=== PATIENT | female | born 1995 | race Caucasian/White ===

== ENCOUNTER 2019-04-07 16:56 | Outpatient (CLI) | payer MEDICAID ==
[~2019-04-07] VITALS: Ht 157.5 cm; Wt 54.4 kg
[~2019-04-07 16:56] MED LIST: ACHD5005 PO; AMOX250S5 PO; BIRTH CONTROL PILL PO; DIPH50CA PO; DOCU100C37 PO; HYDR118S PO; IBUP-1773 PO; PREN1TAB86 PO; TERC45CR VG; TETRACAINE LOLLIPOPS PO
--- NOTE | 2019-04-07 17:05 | NUR ---
Arrived to unit from ED. Ambulates self with c/o left lower sharp abd pain. To room 315. Gowned and urine sample obtained. To bed and oriented to room, call light and surroundings. Bed controls explained.
--- NOTE | 2019-04-07 17:48 | NUR ---
Dr Be called and notified of pt arrival, gestation, c/o, assessment, urine dipstick, fht dopplered. New order received.
--- NOTE | 2019-04-07 18:21 | NUR ---
Dr Be notified of wet prep result and new order received.
[2019-04-07] MEDS ORDERED: METR500T PO (18:24)
--- NOTE | 2019-04-07 18:30 | NUR ---
Discharge instructions explained, signed and copy to patient. pt verbalized understanding of instructions/prescription and denied questions. Ambulates self off unit to private vehicle with belongings in hand. prescription called to [facility] pharmacy per pt request.
== END 2019-04-07 18:30 | disposition home or self-care (01) ==
LOC: LDRP 16:56 → WSo 16:56
PROVIDERS: ATTEND Family Medicine
DX: O99.89 Other specified diseases and conditions complicating pregnancy, childbirth and the puerperium (principal); R10.32 Left lower quadrant pain; Z3A.23 23 weeks gestation of pregnancy
CPT/HCPCS: 87210; 99214

== ENCOUNTER → 2019-04-13 | Outpatient (CLI) | payer MEDICAID ==
[~2019-04-13] MED LIST changes: +METR500T PO
--- NOTE | 2019-04-13 12:36 | Diagnostic Imaging Report ---
INDICATION: survey. TECHNIQUE: Multiple real-time grayscale images were obtained over the gravid uterus. COMPARISON: None. FINDINGS: There is a single live fetus in a cephalic presentation. heart rate was recorded at 153 beats per minute. Placenta is posterior. Amniotic fluid volume appears normal. survey shows kidneys, bladder, and stomach to be unremarkable. brain is unremarkable. There is a four-chamber heart. There is a three-vessel cord. Cord insertion was difficult to visualize due to position. Spine is somewhat limited as well due to position. Cervical length is 4.7 cm. Biometrical measurements are as follows: Biparietal 5.42 cm, age 22 weeks 4 days. Head circumference 20.46 cm, age 22 weeks 5 days. Abdominal circumference 17.60 cm, age 22 weeks 4 days. Femur length 3.90 cm, age 22 weeks 4 days. Sonographic estimate age: 22 weeks 5 days. Sonographic estimated date of delivery: 08/12/19. Estimated Weight: 511 gm (+/- 75 gm). LMP percentile: 4%. heart rate: 153 beats per minute. number: 1 of 1. IMPRESSION: Single live IUP measuring 22 weeks 5 days gestational age. Estimated of confinement sonographically is 08/12/2019. survey is unremarkable, although the cord insertion and spine are somewhat limited due to position. Dictated by: Dictated on workstation # [id number]
== END ==
LOC: RAD 10:08
PROVIDERS: ATTEND Family Medicine
DX: O09.32 Supervision of pregnancy with insufficient antenatal care, second trimester (principal); Z3A.22 22 weeks gestation of pregnancy
CPT/HCPCS: 76805

== ENCOUNTER 2019-06-05 13:41 | Outpatient (CLI) | payer MEDICAID ==
--- NOTE | 2019-06-05 13:45 | NUR ---
KAREN BALLESTEROS presented to unit via AMBULATION from ED, with c/o LOWER ABDOMINAL PAINS. KAREN BALLESTEROS weighed, gowned, voided, and to bed. EFHM and TOCO applied, VS taken. KAREN BALLESTEROS oriented to bed controls, call light, TV, heat, and A/C controls.
[2019-06-05 14:05] VITALS: BP 110/68
--- NOTE | 2019-06-05 14:26 | NUR ---
DR HUBBARD CALLED AND NOTIFIED OF PT ARRIVAL, C/O LOWER ABDOMINAL PAIN SHE DESCRIBES "PULLING" THAT STARTED AROUND [id number] HUBBARD NOTIFIED OF HISTORY, EDC, VS, CTX PATTERN, FHR, OTHER ASSESSMENT FINDINGS. PT DENIES TAKING TYLENOL BECAUSE "SHE CAN FEEL HER BLOOD THINNING" AND IT MAKES HER "SICK TO HER STOMACH". PT REPORTS DRINKING WATER AND HAVING A REGULAR APPETITE, ADEQUATE MOVEMENT, BUT DENIES LEAKING/BLEEDING AND S/S OF UTI. ORDERS REC'D TO CHECK CERVIX, COLLECT UA, AND EDUCATE PT ON STRETCHES FOR ROUND LIGAMENT PAINS
[2019-06-05 14:45] LABS: BILIRUBIN,URINE NEGATIVE (NEGATIVE); CLARITY,URINE CLEAR; COLOR,URINE YELLOW; GLUCOSE, URINE (UA) NEGATIVE (NEGATIVE); KETONES,URINE NEGATIVE (NEGATIVE); LEUKOCYTE ESTERASE ,URINE 3+ (NEGATIVE); NITRITE,URINE NEGATIVE (NEGATIVE); PH,URINE 7 (5-9); PROTEIN,URINE 2+ (NEGATIVE); UROBILINOGEN,URINE 4 MG/DL (NORMAL)
[2019-06-05 15:00] LABS: BACTERIA,URINE LARGE /HPF
--- NOTE | 2019-06-05 15:22 | NUR ---
ORACIO AND CHELSEY REPORTED TO DR. HUBBARD. ORDERS REC'D TO CALL IN MACROBID 100MG BID X 7 DAYS AND DISMISS PT TO HOME.
[2019-06-05] MEDS ORDERED: NITR-65 PO (15:30)
--- NOTE | 2019-06-05 15:39 | NUR ---
DISCHARGE INSTRUCTIONS EXPLAINED TO PT WITH COPY PROVIDED TO PT. PT NOTIFIED OF ABX CALLED TO [facility]. PT EDUCATED ON INTERVENTIONS TO ALEVIATE ROUND LIGAMENT PAINS. PT VERBALIZES UNDERSTANDING OF INSTRUCTIONS AND SIGNS TO VERIFY. DENIES QUESTIONS OR CONCERNS. AMBULATES OFF UNIT TO PRIVATE VEHICLE WITH ALL PERSONAL BELONGINGS. NO S/S OF DISTRESS NOTED.
--- NOTE | 2019-06-08 16:01 | Physician Query-Final Dx ---
ANDREW CANO 06/08/19 1601: Clinic Account Progress/Dx Physician Query: Please give diagnosis Please be sure to add the weeks of gestation Date of Service Jun 05, 2019 at 13:41 VIANNEY HUBBARD MD 06/17/195: Clinic Account Progress/Dx DIAGNOSIS: Diagnosis Abdominal pain UTI 31 weeks gestation third trimester ANDREW CANO Jun 08, 2019 16:01 VIANNEY HUBBARD MD Jun 17, 2019 20:35
== END 2019-06-05 15:39 | disposition home or self-care (01) ==
LOC: WSo 13:41
PROVIDERS: ATTEND Family Medicine
DX: O23.43 Unspecified infection of urinary tract in pregnancy, third trimester (principal); Z3A.31 31 weeks gestation of pregnancy
CPT/HCPCS: 81000; 87088; 99213

== ENCOUNTER → 2019-07-20 | Outpatient (CLI) | payer MEDICAID ==
[~2019-07-20] MED LIST changes: +NITR-65 PO; +PREN1TAB79 PO
--- NOTE | 2019-07-20 16:46 | Diagnostic Imaging Report ---
INDICATION: Ingested tooth fragment. PA and lateral views of the chest are obtained. COMPARISON: No previous study is available for comparison at this time. FINDINGS: Heart size and pulmonary vasculature are within normal limits, and the lungs are clear, bilaterally. There is no evidence of radiopaque fragment over the course of the trachea, bronchi, or lungs. IMPRESSION: Unremarkable chest. Dictated by: Dictated on workstation # [id number]
== END ==
LOC: RAD 16:05
PROVIDERS: ATTEND Family Medicine
DX: T18.9XXA Foreign body of alimentary tract, part unspecified, initial encounter (principal)
CPT/HCPCS: 71046

== ENCOUNTER 2019-07-21 09:23 | Outpatient (CLI) | payer MEDICAID ==
[~2019-07-21] VITALS: Ht 154.9 cm; Wt 63.2 kg
[~2019-07-21 09:23] MED LIST changes: -PREN1TAB79 PO
[2019-07-21] MEDS ORDERED: PREN1TAB79 PO (09:41)
[2019-07-21 09:43] VITALS: BP 99/66
== END 2019-07-21 10:24 | disposition home or self-care (01) ==
LOC: PREOP 09:23
PROVIDERS: ATTEND Obstetrics & Gynecology
DX: Z01.818 Encounter for other preprocedural examination (principal)
CPT/HCPCS: 87081

== ENCOUNTER 2019-07-28 07:01 | Inpatient (IN) | payer MEDICAID ==
[~2019-07-28] VITALS: Ht 155 cm; Wt 62.6 kg
[2019-07-28] VITALS (14 sets, daily range): BP systolic 97–137; BP diastolic 58–89
[~2019-07-28 07:01] MED LIST changes: +PREN1TAB79 PO
--- NOTE | 2019-07-28 07:15 | NUR ---
KAREN BALLESTEROS presented to unit via ambulation from home, accompanied by s/0, with c/o PREVIOUS SECTION. KAREN BALLESTEROS weighed, gowned, voided, and to bed. EFHM and TOCO applied, VS taken. KAREN BALLESTEROS oriented to bed controls, call light, TV, heat, and A/C controls.
[2019-07-28] MEDS ORDERED: ceFAZolin INJECTION 1,000 MG in WATER (STERILE) FOR INJECTION 10 ML IV ONE (07:30)
[2019-07-28] MEDS ORDERED: LACTATED RINGERS 1,000 ML IV PRN ×2 (07:33)
[2019-07-28] MEDS ORDERED: CITRIC ACID/SOB CIT (BICITRA) 30 ML UDC ONE (07:40)
[2019-07-28] MEDS ORDERED: METOCLOPRAMIDE INJ 10 MG/2 ML (REGLAN) ONE (07:40)
[2019-07-28] MEDS ORDERED: WATER (STERILE) FOR INJECTION 20 ML ONE (07:41)
[2019-07-28] MEDS ORDERED: ceFAZolin INJECTION 1,000 MG ONE (07:41)
[2019-07-28] MEDS ORDERED: FAMOTIDINE 20MG/2ML IV (PEPCID) ONE (07:41)
[2019-07-28] MEDS ORDERED: FAMOTIDINE 20MG/2ML IV (PEPCID) IV ONE (07:45)
[2019-07-28] MEDS ORDERED: METOCLOPRAMIDE INJ 10 MG/2 ML (REGLAN) IV ONE (07:45)
[2019-07-28] MEDS ORDERED: CITRIC ACID/SOB CIT (BICITRA) 30 ML UDC PO ONE (07:45)
[2019-07-28] MEDS ORDERED: CATHETER FLUSH 10 ML SYR IV PRN (07:45)
[2019-07-28] MEDS ORDERED: fentaNYL INJECTION 100 MCG/2 ML AMP ONE (08:06)
[2019-07-28 08:09] LABS: BASOPHILS % (AUTO) 0 % (0-10); BILIRUBIN,URINE NEGATIVE (NEGATIVE); CLARITY,URINE CLEAR; COLOR,URINE YELLOW; EOSINOPHILS # (AUTO) 0.1 10^3/uL (0.0-0.3); EOSINOPHILS % (AUTO) 1 % (0-10); GLUCOSE, URINE (UA) NEGATIVE (NEGATIVE); HEMATOCRIT 34 % (35-52); HEMOGLOBIN 11.1 G/DL (11.5-16.0); KETONES,URINE NEGATIVE (NEGATIVE); LEUKOCYTE ESTERASE ,URINE 1+ (NEGATIVE); LYMPHOCYTES # (AUTO) 0.8 X 10^3 (1.0-4.0); LYMPHOCYTES % (AUTO) 10 % (12-44); MEAN CORPUSCULAR HEMOGLOBIN 29 PG (25-34); MEAN CORPUSCULAR HGB CONC 33 G/DL (32-36); MEAN CORPUSCULAR VOLUME 87 FL (80-99); MEAN PLATELET VOLUME 10.4 FL (7.4-10.4); MONOCYTES # (AUTO) 0.5 X 10^3 (0.0-1.0); MONOCYTES % (AUTO) 6 % (0-12); NEUTROPHILS # (AUTO) 6.9 X 10^3 (1.8-7.8); NEUTROPHILS % (AUTO) 84 % (42-75); NITRITE,URINE NEGATIVE (NEGATIVE); PH,URINE 6.5 (5-9); PLATELET COUNT 192 10^3/uL (130-400); PROTEIN,URINE NEGATIVE (NEGATIVE); RED CELL DISTRIBUTION WIDTH 13.5 % (10.0-14.5); UROBILINOGEN,URINE NORMAL (NORMAL); WHITE BLOOD COUNT 8.2 10^3/uL (4.3-11.0)
[2019-07-28 08:16] LABS: BACTERIA,URINE MODERATE /HPF
[2019-07-28] MEDS ORDERED: OXYTOCIN/NORMAL SALINE 1,000 ML IV ONE (08:25)
[2019-07-28] MEDS ORDERED: KETAMINE/NaCl 50 MG/5 ML SYRINGE ONE (08:32)
--- NOTE | 2019-07-28 08:36 | Progress Note-Pre Operative ---
Pre-Operative Progress Note H&P Reviewed The H&P was reviewed, patient examined and no changes noted. Date Seen by Provider: Jul 28, 2019 Time Seen by Provider: 08:30 Date H&P Reviewed: Jul 28, 2019 Time H&P Reviewed: 08:15 Pre-Operative Diagnosis: Previous section YAMINI SEVILLA DO Jul 28, 2019 08:36
[2019-07-28] MEDS ORDERED: BUPIVACAINE 0.5% 30 ML (SENSORCAINE) VIAL ONE (08:38)
[2019-07-28] MEDS ORDERED: OXYTOCIN/NORMAL SALINE 500 ML IV SCH (09:46)
[2019-07-28] MEDS: KETOROLAC 30 MG/ML VIAL IV SCH ×3 (09:50→23:42)
--- NOTE | 2019-07-28 09:51 | Cesarean Section Operative ---
Procedure Procedure Note Pre-operative Diagnosis: Zaira Rizo is a 23 /Para 12/1111 , Gestational Age 39 weeks with history of previous section. Post-operative Diagnosis: same Procedure: Repeat low transverse section Physician: YAMINI SEVILLA Professional Volleyball Player: Brittney Fernández MS III Estimated blood loss: 400 mL Disposition: Findings: Viable female , Apgars 9/9, weight 6#5ounces, intact placenta, 3vc, normal appearing uterus, tubes, and ovaries. Indications:Zaira Rizo is a 23 /Para 12/1111 ,Gestational Age 39 weeks with history of previous section. Procedure Details: The patient was seen in pre-op and the procedure was discussed with the patient in full, including the risks, benefits, and alternatives. All questions were answered. The patient was taken to the operating room and a time out was performed, verifying patient and procedure. After spinal anesthesia was placed by our anesthesia colleagues, the patient was placed in the dorsal supine with leftward tilt for uterine displacement.~ Her abdomen was then prepped and draped in the typical sterile fashion. A Pfannenst iel skin incision was made using a scalpel and carried down through the underlying fascia. The fascia was incised in the midline and tented up using Jennifer clamps. On both the inferior and superior fascia side the rectus muscle was dissected off bluntly and sharply using Engel scissors. The peritoneum was identified and entered bluntly in the midline. This was then stretched laterally using manual strength. After entering the abdominal cavity and confirming lack of intraperitoneal adhesions, a large Chetan retractor was placed and the lower uterine segment was visualized. A bladder flap was created with the use of Metzenbaum scissors.~ A scalpel was utilized to make a low transverse uterine incision. Amniotomy was performed with an Allis clamp with return of clear fluid. The infant's head was grasped and brought to the level of the incision. Fundal pressure was applied and was delivered without difficulty. Mouth and nares were suctioned with bulb suction. After the umbilical cord was clamped and cut, the infant was handed off to the pediatric staff. A sample of cord blood was then obtained. The placenta was delivered intact via uterine massage. The uterus was exteriorized and cleared of all clots and debris. The uterine incision was closed using 0 Vicryl in a running locked fashion. A second imbricated layer was placed using 0 Vicryl in a running fashion as well. The uterus was flexed forward and the posterior rectouterine space was inspected and cleared of all clots and debris. Again the hysterotomy site was examined and hemostasis was observed. The bilateral tubes and ovaries appeared normal. The uterus was placed back into the abdominal cavity and abdominal gutters were cleared of all clots and debris. A final check of the uterine incision showed it to be hemostatic. The peritoneum was closed using 3-0 Vicryl in a running fashion. The fascia was closed with 0 Vicryl in a running fashion. The subcutaneous space was hemostatic, and irrigated. The subcutaneous space was closed with 3-0 Vicryl in several single interrupted stitches. The skin was then closed using 4-0 Monocryl in a running subcuticular fashion. The skin edges were reapproximated together and were hemostatic. A pressure dressing was applied. All sponge, lap and needle counts were correct at the end of the procedure per nursing. Vitals - Labs Vital Signs - I&O Vital Signs Date Time Temp Pulse Resp B/P (MAP) Pulse Ox O2 Delivery O2 Flow Rate FiO2 07/28/19 08:40 90 20 101/67 (78) Room Air 07/28/19 08:20 80 20 97/68 (78) Room Air 07/28/19 07:50 80 20 99/58 (72) Room Air 07/28/19 07:20 36.7 73 20 109/73 (85) Room Air Labs Laboratory Tests 07/28/19 07:40: White Blood Count 8.2, Red Blood Count 3.88L, Hemoglobin 11.1L, Hematocrit 34L, Mean Corpuscular Volume 87, Mean Corpuscular Hemoglobin 29, Mean Corpuscular Hemoglobin Concent 33, Red Cell Distribution Width 13.5, Platelet Count 192, Mean Platelet Volume 10.4, Neutrophils (%) (Auto) 84H, Lymphocytes (%) (Auto) 10L, Monocytes (%) (Auto) 6, Eosinophils (%) (Auto) 1, Basophils (%) (Auto) 0, Neutrophils # (Auto) 6.9, Lymphocytes # (Auto) 0.8L, Monocytes # (Auto) 0.5, Eosinophils # (Auto) 0.1, Basophils # (Auto) 0.0, Urine Color YELLOW, Urine Clar ity CLEAR, Urine pH 6.5, Urine Specific [place] 1.015L, Urine Protein NEGATIVE, Urine Glucose (UA) NEGATIVE, Urine Ketones NEGATIVE, Urine Nitrite NEGATIVE, Urine Bilirubin NEGATIVE, Urine Urobilinogen NORMAL, Urine Leukocyte Esterase 1+H, Urine RBC (Auto) NEGATIVE, Urine RBC NONE, Urine WBC 5-10H, Urine Squamous Epithelial Cells 10-25H, Urine Crystals NONE, Urine Bacteria MODERATEH, Urine Casts NONE, Urine Mucus NEGATIVE, Urine Culture Indicated YES YAMINI SEVILLA DO Jul 28, 2019 09:51
[2019-07-28] MEDS ORDERED: TETANUS,DIPTH,PERTUSS P/F (BOOSTRIX) 0.5 ML VIAL IM SCH (10:00)
[2019-07-28] MEDS ORDERED: morphine INJ 4 MG/ML 1 ML (VIAL/SYRINGE) IVP PRN (10:00)
[2019-07-28] MEDS ORDERED: MEASLES,MUMPS,RUBELLA 1 EA INJ SC SCH (10:00)
[2019-07-28] MEDS ORDERED: PHENYLEPHRINE 100 MCG/ML 10 ML (ANESTHESIA) SYR ONE (10:03)
--- NOTE | 2019-07-28 11:10 | NUR ---
PT TRANSPORTED TO ROOM 3307 FOR PP CARE, NO DISTRESS, IV PITOCIN INFUSING PER PUMP. PT KARYNA PAIN OR C/O. S/O AND INFANT AT SIDE OF BED. SCD'S ON, FFU/2 LT LOCHIA NOTED. PLAN OF CARE EXPLAINED, WILL MONITOR CLOSELY.
--- NOTE | 2019-07-28 11:48 | NUR ---
RT CALLED ABOUT IS.
--- NOTE | 2019-07-28 12:00 | NUR ---
PT C/O PAIN, MEDS GIVEN SEE DEC.
[2019-07-28] MEDS: ACETAMINOPHEN 500 MG TAB (TYLENOL) PO SCH ×2 (14:30→23:43)
--- NOTE | 2019-07-28 14:30 | NUR ---
PT C/O PAIN, MORPHINE 2MG GIVE SIVP, SCHEDULED TYLENOL GIVEN PO.
--- NOTE | 2019-07-28 15:40 | NUR ---
PITOCIN COMPLETE, IV HEP LOCKED, PT AMBULATED TO BR, VOIDED, PERICARE COMPLETED, BACK TO BED. TOLERATED WELL, PTS FAMILY AT BEDSIDE.
[2019-07-28] MEDS: CATHETER FLUSH 10 ML SYR IV SCH ×2 (16:40→23:43)
--- NOTE | 2019-07-28 16:40 | NUR ---
PT C/O PAIN, SCHEDULED TORADOL GIVEN SIVP, OXYCODONE GIVEN PO.
--- NOTE | 2019-07-28 20:00 | NUR ---
vs and assessments done. pain addressed.
[2019-07-28] MEDS: DOCUSATE SODIUM 100 MG (COLACE) CAP PO SCH (21:06)
[2019-07-29 01:44] VITALS: BP 110/62
[2019-07-29] MEDS ORDERED: MILK OF MAGNESIA 400 MG/5 ML 30 ML UDC PO PRN (05:00)
[2019-07-29 05:08] LABS: BASOPHILS % (AUTO) 0 % (0-10); EOSINOPHILS # (AUTO) 0.1 10^3/uL (0.0-0.3); EOSINOPHILS % (AUTO) 1 % (0-10); HEMATOCRIT 28 % (35-52); HEMOGLOBIN 9.2 G/DL (11.5-16.0); LYMPHOCYTES # (AUTO) 0.8 X 10^3 (1.0-4.0); LYMPHOCYTES % (AUTO) 10 % (12-44); MEAN CORPUSCULAR HEMOGLOBIN 28 PG (25-34); MEAN CORPUSCULAR HGB CONC 32 G/DL (32-36); MEAN CORPUSCULAR VOLUME 87 FL (80-99); MEAN PLATELET VOLUME 10.1 FL (7.4-10.4); MONOCYTES # (AUTO) 0.4 X 10^3 (0.0-1.0); MONOCYTES % (AUTO) 5 % (0-12); NEUTROPHILS # (AUTO) 6.7 X 10^3 (1.8-7.8); NEUTROPHILS % (AUTO) 84 % (42-75); PLATELET COUNT 186 10^3/uL (130-400); RED CELL DISTRIBUTION WIDTH 13.6 % (10.0-14.5)
[2019-07-29] MEDS: KETOROLAC 30 MG/ML VIAL IV SCH (05:43)
--- NOTE | 2019-07-29 05:50 | NUR ---
vs done. dressing removed. incision clean and dry. well approximated.
[2019-07-29 06:02] VITALS: BP 100/56
--- NOTE | 2019-07-29 07:35 | Anesthesia-Regional Post-Op ---
Regional Patient Condition Mental Status: Alert, Oriented x3 Circulation: Same as Pre-Op Headache: Absent Sensation: Full Recovery Motor Block: Absent Post Op Complications Complications None Follow Up Care/Instructions Patient Instructions None needed. Anesthesia/Patient Condition Patient is doing well, no complaints, stable vital signs, no apparent adverse anesthesia problems. No complications reported per nursing. [place] home [place] [facility]: Yes SKINNY GANDARA CRNA Jul 29, 2019 07:35
--- NOTE | 2019-07-29 08:00 | NUR ---
Mom holding after attempting to nurse. Pt up to BR - placed in crib - awake and alert - sucking on pacifier.
[2019-07-29 08:15] VITALS: BP 101/62
[2019-07-29] MEDS: DOCUSATE SODIUM 100 MG (COLACE) CAP PO SCH ×2 (08:30→19:52)
--- NOTE | 2019-07-29 08:32 | Postpartum Progress Note ---
Post Op Post-operative Day #1 s/p RLTCS Subjective: Patient is without complaints. Ambulating, voiding after hollins removed. Tolerating a regular diet without nausea or vomiting. Normal lochia. Pain is well controlled with oral pain medications. Passing flatus. breast feeding. [] Objective: 07/29/19 07/29/19 01:44 06:02 Temp 36.6 36.5 Pulse 67 66 Resp 18 18 B/P (MAP) 110/62 (78) 100/56 (71) Pulse Ox 97 98 07/29/19 00:00 Intake Total 950 ml Balance 950 ml Laboratory Tests Test 07/29/19 04:58 Range/Units White Blood Count 8.0 4.3-11.0 10^3/uL Red Blood Count 3.25 L 4.35-5.85 10^6/uL Hemoglobin 9.2 L 11.5-16.0 G/DL Hematocrit 28 L 35-52 % Mean Corpuscular Volume 87 80-99 FL Mean Corpuscular Hemoglobin 28 25-34 PG Mean Corpuscular Hemoglobin Concent 32 32-36 G/DL Red Cell Distribution Width 13.6 10.0-14.5 % Platelet Count 186 130-400 10^3/uL Mean Platelet Volume 10.1 7.4-10.4 FL Neutrophils (%) (Auto) 84 H 42-75 % Lymphocytes (%) (Auto) 10 L 12-44 % Monocytes (%) (Auto) 5 0-12 % Eosinophils (%) (Auto) 1 0-10 % Basophils (%) (Auto) 0 0-10 % Neutrophils # (Auto) 6.7 1.8-7.8 X 10^3 Lymphocytes # (Auto) 0.8 L 1.0-4.0 X 10^3 Monocytes # (Auto) 0.4 0.0-1.0 X 10^3 Eosinophils # (Auto) 0.1 0.0-0.3 10^3/uL Basophils # (Auto) 0.0 0.0-0.1 10^3/uL Physical Exam: General - Alert and oriented, no apparent distress Abdomen - Soft, appropriately tender to palpation, non-distended, fundus firm at umbilicus Incision - clean, dry and intact; no erythema or induration, no drainage Extremities - no edema, negative Doug's bilaterally [ Assessment: 1. post-operative day # 1, status post RLTCS. Recovering well, hemodynamically stable Acute blood loss anemia Plan: Routine post-operative care. Encourage breast feeding. Encourage ambulation. VTE prophylaxis: SCDs. Ferrous sulfate supplementation. Plan for discharge tomorrow Vitals - Labs Vital Signs - I&O Vital Signs Date Time Temp Pulse Resp B/P (MAP) Pulse Ox O2 Delivery O2 Flow Rate FiO2 07/29/19 06:02 36.5 66 18 100/56 (71) 98 07/29/19 01:44 36.6 67 18 110/62 (78) 97 07/28/19 20:30 36.4 78 18 98/60 (73) 97 07/28/19 16:40 36.1 78 20 111/71 (84) 100 Room Air 07/28/19 14:30 60 20 137/76 (96) 100 Room Air 07/28/19 13:30 56 20 127/78 (94) 100 Room Air 07/28/19 12:30 36.1 54 20 123/79 (94) 100 Room Air 07/28/19 10:55 36.2 20 105/89 (94) 100 Room Air 07/28/19 10:55 Room Air 07/28/19 10:45 Room Air 07/28/19 10:45 36.1 16 110/81 (91) 100 Room Air 07/28/19 10:30 Room Air 07/28/19 10:30 36.1 15 104/70 (81) 100 Room Air 07/28/19 10:15 36.0 15 107/79 (88) 100 Room Air 07/28/19 10:15 Room Air 07/28/19 10:05 36.0 15 112/71 (85) 100 Room Air 07/28/19 10:05 Room Air 07/28/19 08:40 90 20 101/67 (78) Room Air I & O 07/29/19 07:00 Intake Total 3960 ml Output Total 1550 ml Balance 2410 ml Labs Laboratory Tests 07/29/19 04:58: White Blood Count 8.0, Red Blood Count 3.25L, Hemoglobin 9.2L, Hematocrit 28L, Mean Corpuscular Volume 87, Mean Corpuscular Hemoglobin 28, Mean Corpuscular Hemoglobin Concent 32, Red Cell Distribution Width 13.6, Platelet Count 186, Mean Platelet Volume 10.1, Neutrophils (%) (Auto) 84H, Lymphocytes (%) (Auto) 10L, Monocytes (%) (Auto) 5, Eosinophils (%) (Auto) 1, Basophils (%) (Auto) 0, Neutrophils # (Auto) 6.7, Lymphocytes # (Auto) 0.8L, Monocytes # (Auto) 0.4, Eosinophils # (Auto) 0.1, Basophils # (Auto) 0.0 YAMINI SEVILLA DO Jul 29, 2019 08:32
[2019-07-29 12:25] VITALS: BP 112/63
--- NOTE | 2019-07-29 13:00 | NUR ---
report received from ARVIND Ramires. care assumed of pt.
[2019-07-29] MEDS: ACETAMINOPHEN 500 MG TAB (TYLENOL) PO SCH (15:27)
[2019-07-29 18:40] VITALS: BP 103/69
[2019-07-29] MEDS: NAPROXEN 250 MG (NAPROSYN) TABLET PO SCH (19:51)
[2019-07-29 22:00] VITALS: BP 107/62
[2019-07-30] MEDS: ACETAMINOPHEN 500 MG TAB (TYLENOL) PO SCH ×3 (02:13→15:59)
[2019-07-30 04:00] VITALS: BP 103/64
[2019-07-30] MEDS: CATHETER FLUSH 10 ML SYR IV SCH (06:00)
[2019-07-30 08:00] VITALS: BP 104/65
[2019-07-30] MEDS: DOCUSATE SODIUM 100 MG (COLACE) CAP PO SCH (08:08)
[2019-07-30] MEDS: NAPROXEN 250 MG (NAPROSYN) TABLET PO SCH (08:10)
[2019-07-30 13:48] VITALS: BP 104/65
[2019-07-30 14:25] VITALS: BP 107/62
[2019-07-30] MEDS ORDERED: ACET-77 PO (14:31)
[2019-07-30] MEDS ORDERED: DOCU100C37 PO (14:31)
[2019-07-30] MEDS ORDERED: NAPR250T6 PO (14:31)
[2019-07-30] MEDS ORDERED: OXC5T PO (14:31)
--- NOTE | 2019-07-30 14:34 | Short Stay Summary ---
Discharge Summary Hospital Course Was the Problem List Reviewed?: Yes Hospital Course Date of Admission: Jul 28, 2019 at 07:01 Admission Diagnosis : Family Physician/Provider: No,Local Physician Date of Discharge: 07/30/19 Discharge Diagnosis: [ ] Hospital Course: [ ] Labs and Pending Lab Test: Microbiology 07/28/19 MRSA Screen - Final, Complete MRSA not isolated 07/28/19 Urine Culture - Final, Complete 3 or more isolates Home Meds Active Reported Vitamins ( Vit W-Ca,Fe,FA(<1 mg)) 1 Each Tablet 1 Each PO DAILY Discharge Instructions Discharge Diet: No Restrictions Activity as Tolerated: Yes (no lifeting over 25 lbs, no driveing for 1 w eeks, nothing in the vagina (no sex, no tampons no douching), no smoking) Discharge Physical Examination General Appearance: Alert, Oriented X3 HEENT: Atraumatic Respiratory: Clear to Auscultation, Normal Air Movement Cardiovascular: Regular Rate, No Murmurs Abdominal: Other (Inc C/D/I) Psych/Mental Status: Mental Status NL Allergies: Coded Allergies: ibuprofen (Verified Allergy, Mild, NAUSEA, 07/21/19) Discharge Summary Date of Admission Jul 28, 2019 at 07:01 Date of Discharge 07/30/19 Discharge Date: Jul 30, 2019 Discharge Time: 13:00 Admission Diagnosis Previous section\ antepartum and acute blood loss anemia Consults/Procedures Procedures repeat section Clinical Quality Measures DVT/VTE Risk/Contraindication: Risk Factor Score Per Nursin RFS Level Per Nursing on Admit: 1=Low/No VTE PPX YAMINI SEVILLA DO Jul 30, 2019 14:33
[2019-07-30 16:00] VITALS: BP 116/76
--- NOTE | 2019-07-30 16:35 | NUR ---
Home instructions given to mom with verbalization of understanding. 1830 Pt escorted to exit via wheelchair. Accompanied by this nurse, father of baby, toddler daughter, and in car seat.
== END 2019-07-30 18:30 | disposition home or self-care (01) | DRG 787 ==
LOC: LDRP 07:01
PROVIDERS: ADMIT Obstetrics & Gynecology; ATTEND Obstetrics & Gynecology
PROC: 10D00Z1 Extraction of Products of Conception, Low, Open Approach (ICD-10-PCS; principal; 2019-07-28 08:40)
DX: O34.211 Maternal care for low transverse scar from previous cesarean delivery (principal); O99.03 Anemia complicating the puerperium; D62 Acute posthemorrhagic anemia; O99.344 Other mental disorders complicating childbirth; F41.9 Anxiety disorder, unspecified; F32.9 Major depressive disorder, single episode, unspecified; F90.9 Attention-deficit hyperactivity disorder, unspecified type; Z87.891 Personal history of nicotine dependence; Z3A.39 39 weeks gestation of pregnancy; Z37.0 Single live birth
CPT/HCPCS: 36415; 81000; 85025; 86850; 86900; 86901; 87081; 87088

== ENCOUNTER → 2019-08-24 | Outpatient (CLI) | payer MEDICAID ==
[~2019-08-24] MED LIST changes: +ACET-77 PO; +NAPR250T6 PO; +OXC5T PO
--- NOTE | 2019-08-24 15:35 | Diagnostic Imaging Report ---
INDICATION: Right breast lump in the region of the 12 o'clock location. FINDINGS: Sonographic interrogation of the area of lump at 12 o'clock in the right breast was performed. No sonographic abnormality is seen. No solid or cystic mass is detected. IMPRESSION: No sonographic abnormality is seen. Continued close clinical and self breast exams are recommended to confirm stability of the palpable abnormality. ACR BI-RADS Category 1: Negative. Dictated by: Dictated on workstation # [id number]
== END ==
LOC: RAD 14:23
PROVIDERS: ATTEND Nurse Practitioner Family
DX: N63.10 Unspecified lump in the right breast, unspecified quadrant (principal)

== ENCOUNTER 2021-05-30 16:42 | Emergency (ER) | payer MEDICAID ==
[~2021-05-30] VITALS: Ht 157.4 cm; Wt 62.6 kg
[~2021-05-30 16:42] MED LIST changes: -ACET-77 PO; +ACET-78 PO; +NAPR-1088 PO; -NAPR250T6 PO
[2021-05-30] MEDS ORDERED: LIDOCAINE 2% VISCOUS 15 ML UDC PO ONE (17:15)
[2021-05-30] MEDS ORDERED: ANTACID SUSP 30 ML UDC (MYLANTA) PO ONE (17:15)
[2021-05-30 17:28] LABS: BASOPHILS % (AUTO) 0 % (0-10); EOSINOPHILS # (AUTO) 0.1 10^3/uL (0.0-0.3); EOSINOPHILS % (AUTO) 1 % (0-10); HEMATOCRIT 41 % (35-52); HEMOGLOBIN 14.2 g/dL (11.5-16.0); LYMPHOCYTES # (AUTO) 1.2 10^3/uL (1.0-4.0); LYMPHOCYTES % (AUTO) 22 % (12-44); MEAN CORPUSCULAR HEMOGLOBIN 29 pg (25-34); MEAN CORPUSCULAR HGB CONC 34 g/dL (32-36); MEAN CORPUSCULAR VOLUME 85 fL (80-99); MEAN PLATELET VOLUME 10.8 fL (9.0-12.2); MONOCYTES # (AUTO) 0.4 10^3/uL (0.0-1.0); MONOCYTES % (AUTO) 7 % (0-12); NEUTROPHILS # (AUTO) 3.9 10^3/uL (1.8-7.8); NEUTROPHILS % (AUTO) 70 % (42-75); PLATELET COUNT 210 10^3/uL (130-400); WHITE BLOOD COUNT 5.6 10^3/uL (4.3-11.0)
--- NOTE | 2021-05-30 17:30 | ED Chest Pain ---
General Chief Complaint: Chest Pain Stated Complaint: CHEST PAIN, SOB Source: patient Exam Limitations: no limitations History of Present Illness Date Seen by Provider: May 30, 2021 Time Seen by Provider: 16:57 Initial Comments 26-year-old female with past medical history of anxiety, depression, and 2 previous C-sections coming in due to chest pain that has been ongoing for 1 year as well as shortness of breath has been ongoing for roughly 24 hours. She states the chest pain is in the center of her chest, sharp, intermittent. It is worse in the mornings when she wakes up and gets better throughout the day. Lately has been taking longer throughout the day to get better. The shortness of breath was worse yesterday and she associates it with her chest pain. Denies any history of blood clots in her legs or lungs. Denies any family history of blood clots. Denies any family history of early cardiac . She has not had any recent surgery, denies hemoptysis, no cough, no fever, vomiting, diarrhea, abdominal pain, or any other concerns. She does smoke E cigarettes. Allergies and Home Medications Allergies Coded Allergies: ibuprofen (Verified Allergy, Mild, NAUSEA, 07/21/19) Home Medications Acetaminophen 500 Mg Tablet, 1,000 MG PO Q8HR Prescribed by: YAMINI SEVILLA on 07/30/19 143 Docusate Sodium 100 Mg Capsule, 100 MG PO BID Prescribed by: YAMINI SEVILLA on 07/30/19 143 Naproxen 250 Mg Tablet, 500 MG PO BID Prescribed by: YAMINI SEVILLA on 07/30/19 143 Oxycodone Hcl 5 Mg Tab, 5 MG PO Q4HR Prescribed by: YAMINI SEVILLA on 07/30/19 1431 Vit W-Ca,Fe,FA(<1 mg) 1 Each Tablet, 1 EACH PO DAILY, (Reported) Patient Home Medication List Home Medication List Reviewed: Yes Review of Systems Review of Systems Constitutional: no symptoms reported; No fever EENTM: No Eye Pain Respiratory: Denies Cough; Shortness of Air Cardiovascular: Chest Pain Gastrointestinal: Denies Abdominal Pain, Denies Constipated, Denies Diarrhea Genitourinary: Denies Burning, Denies Frequency Musculoskeletal: No back pain Skin: No rash Psychiatric/Neurological: Denies Numbness Endocrine: No Symptoms Reported Hematologic/Lymphatic: No Symptoms Reported All Other Systems Reviewed Negative Unless Noted: Yes Past Wfekikr-Rpmrhu-Dxpaml Hx Patient Social History Tobacco Use?: Yes Tobacco type used: Cigarettes Immunizations Up To Date Tetanus Booster (TDap): Unknown Seasonal Allergies Seasonal Allergies: Yes Past Medical History Surgeries: Yes Respiratory: No Currently Using CPAP: No Currently Using BIPAP: No Cardiac: No 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) Reproductive Disorders: No Female Reproductive Disorders: Denies Sexually Transmitted Disease: No HIV/AIDS: No Gastrointestinal: No Gastroesophageal Reflux Musculoskeletal: No (WITH ) Chronic Back Pain Endocrine: No HEENT: Yes (GLASSES) Loss of Vision: Denies Hearing Impairment: Denies Cancer: No Psychosocial: Yes Anxiety, Depression Integumentary: Yes (HEAT HIVES) Eczema Blood Disorders: No Adverse Reaction/Blood Tranf: No (N/A) Family Medical History MULTIPLE SCLEROSIS 19 MOTHER Physical Exam Vital Signs Vital Signs - First Documented 05/30/21 16:45 Temp 37.1 Pulse 96 Resp 18 B/P (MAP) 106/71 (83) Pulse Ox 96 O2 Delivery Room Air Capillary Refill : Height, Weight, BMI Height: 5'2.00" Weight: 120lbs. 0.0oz. [id number]; 26.05 BMI Method:Stated General Appearance: No Apparent Distress, WD/WN HEENT: PERRL/EOMI, TMs Normal, Pharynx Normal Neck: Full Range of Motion, Normal Inspection, Non Tender Respiratory: Chest Non Tender, Lungs Clear, Normal Breath Sounds, No Accessory Muscle Use, No Respiratory Distress Cardiovascular: Regular Rate, Rhythm, No Edema, No Murmur, Normal Peripheral Pulses Gastrointestinal: Normal Bowel Sounds, Non Tender, Soft; No Distended, No Guarding Neurologic/Psychiatric: Alert, No Motor/Sensory Deficits, Normal Mood/Affect Skin: Normal Color, Warm/Dry Lymphatic: No Adenopathy Progress/Results/Core Measures Results/Orders Lab Results Laboratory Tests Test 05/30/21 17:08 Range/Units White Blood Count 5.6 4.3-11.0 10^3/uL Red Blood Count 4.85 3.80-5.11 10^6/uL Hemoglobin 14.2 11.5-16.0 g/dL Hematocrit 41 35-52 % Mean Corpuscular Volume 85 80-99 fL Mean Corpuscular Hemoglobin 29 25-34 pg Mean Corpuscular Hemoglobin Concent 34 32-36 g/dL Red Cell Distribution Width 11.7 10.0-14.5 % Platelet Count 210 130-400 10^3/uL Mean Platelet Volume 10.8 9.0-12.2 fL Immature Granulocyte % (Auto) 0 % Neutrophils (%) (Auto) 70 42-75 % Lymphocytes (%) (Auto) 22 12-44 % Monocytes (%) (Auto) 7 0-12 % Eosinophils (%) (Auto) 1 0-10 % Basophils (%) (Auto) 0 0-10 % Neutrophils # (Auto) 3.9 1.8-7.8 10^3/uL Lymphocytes # (Auto) 1.2 1.0-4.0 10^3/uL Monocytes # (Auto) 0.4 0.0-1.0 10^3/uL Eosinophils # (Auto) 0.1 0.0-0.3 10^3/uL Basophils # (Auto) 0.0 0.0-0.1 10^3/uL Immature Granulocyte # (Auto) 0.0 0.0-0.1 10^3/uL D-Dimer < 0.27 0.00-0.49 UG/ML Sodium Level 141 135-145 MMOL/L Potassium Level 3.8 3.6-5.0 MMOL/L Chloride Level 106 98-107 MMOL/L Carbon Dioxide Level 24 21-32 MMOL/L Anion Gap 11 5-14 MMOL/L Blood Urea Nitrogen 8 7-18 MG/DL Creatinine 0.76 0.60-1.30 MG/DL Estimat Glomerular Filtration Rate 93 BUN/Creatinine Ratio 11 Glucose Level 89 70-105 MG/DL Calcium Level 9.6 8.5-10.1 MG/DL Corrected Calcium 9.2 8.5-10.1 MG/DL Total Bilirubin 0.7 0.1-1.0 MG/DL Aspartate Amino Transf (AST/SGOT) 15 5-34 U/L Alanine Aminotransferase (ALT/SGPT) 12 0-55 U/L Alkaline Phosphatase 66 40-136 U/L Troponin I < 0.028 <0.028 NG/ML Total Protein 7.7 6.4-8.2 GM/DL Albumin 4.5 3.2-4.5 GM/DL My Orders Orders - CESARIO RODRIGUEZ MD Cbc With Automated Diff (05/30/21 17:14) Ekg Tracing (05/30/21 17:14) Comprehensive Metabolic Panel (05/30/21 17:14) Monitor-Rhythm Ecg Trace Only (05/30/21 17:14) Ed Iv/Invasive Line Start (05/30/21 17:14) Troponin I (05/30/21 17:14) Lidocaine 2% Viscous 15 Ml (Xylocaine Vi (05/30/21 17:15) Antacid Suspension (Mylanta Suspension (05/30/21 17:15) Fibrin Degradation Products (05/30/21 17:14) Medications Given in ED Current Medications Medications Dose Ordered Sig/Patrice Route Start Time Stop Time Status Last Admin Dose Admin Al Hydrox/Mg Hydrox/Simethicone 30 ml ONCE ONCE PO 05/30/21 17:15 05/30/21 17:17 DC 05/30/21 17:29 30 ML Lidocaine HCl 15 ml ONCE ONCE PO 05/30/21 17:15 05/30/21 17:17 DC 05/30/21 17:29 15 ML Vital Signs/I&O 05/30/21 05/30/21 16:45 16:45 Temp 37.1 Pulse 96 Resp 18 B/P (MAP) 106/71 (83) Pulse Ox 96 O2 Delivery Room Air Room Air Progress Progress Note : Progress Note 26-year-old female with above history coming in due to chest pain for over 1 year with now new shortness of breath. ABCs were intact and vitals were stable on presentation. Unfortunately her heart rate does get up to around 100 but then goes back down to the 80s. EKG ordered and interpreted by me with narrow QRS, normal axis, rate of 93, no significant ST changes, flattening of the T waves inferiorly. EKG has a wandering baseline making it difficult to interpret. Given that her heart rate goes up to 100 and she is on cont rol, this puts her at a slightly higher risk for a pulmonary embolism. The reassuring risk factors are that the chest pain has been going on for over a year. We will obtain a D-dimer to further restratify her since she is not PERC negative. Troponin negative, d dimer negative, and she improved after a GI cocktail. POC ultrasound done with normal EF, no signs of right heart strain, and no pericardial effusion. Normal lung sliding bilaterally making pneumothorax unlikely. I believe she is safe for discharge and this is likely related to GI vs MSK vs anxiety related. She was sent home with strict return precautions. Initial ECG Impression Date: May 30, 2021 Initial ECG Impression Time: 17:00 Initial ECG Rate: 93 Initial ECG Rhythm: Normal Sinus Initial ECG Impression: Normal Comment no st changes, flattening of twaves inferior Departure Impression Primary Impression: Chest pain Qualified Codes: R07.2 - Precordial pain Disposition: 01 HOME, SELF-CARE Condition: Improved Departure-Patient Inst. Decision time for Depature: 18:04 Referrals: TK STARK MD (PCP) Primary Care Physician NO,LOCAL PHYSICIAN (Family) Primary Care Physician Patient Instructions: Chest Pain (DC) Add. Discharge Instructions: You were seen in the emergency department for chest pain and shortness of breath. Your work-up revealed no signs of a heart attack or blood clot and otherwise you improved with Milanta which helps with GI symptoms. You can continue to try to take this at home if you are having symptoms. Please follow- up with your doctor within the next week. If you have any concerns please come back to the emergency department. All discharge instructions reviewed with patient and/or family. Voiced understanding. Work/School Note: Work Release Form Date Seen in the Emergency Department: May 30, 2021 Return to Work: May 31, 2021 Restrictions: No Restrictions CESARIO RODRIGUEZ MD May 30, 2021 17:30
[2021-05-30 17:34] LABS: ALBUMIN 4.5 GM/DL (3.2-4.5); POTASSIUM 3.8 MMOL/L (3.6-5.0)
[2021-05-30 17:36] LABS: CALCIUM 9.6 MG/DL (8.5-10.1)
[2021-05-30 17:37] LABS: TOTAL PROTEIN 7.7 GM/DL (6.4-8.2)
[2021-05-30 17:38] LABS: BILIRUBIN,TOTAL 0.7 MG/DL (0.1-1.0)
[2021-05-30 17:40] LABS: CREATININE SERUM 0.76 MG/DL (0.60-1.30)
[2021-05-30 18:17] VITALS: BP 97/69
== END 2021-05-30 18:18 | disposition home or self-care (01) ==
LOC: EDUNIT# 16:42 → ER 16:44
DX: R07.9 Chest pain, unspecified (principal); G89.29 Other chronic pain; M54.9 Dorsalgia, unspecified; F17.210 Nicotine dependence, cigarettes, uncomplicated; Z79.891 Long term (current) use of opiate analgesic; Z79.899 Other long term (current) drug therapy
CPT/HCPCS: 36415; 80053; 84484; 85025; 85379; 93005; 93041

== ENCOUNTER 2021-08-04 20:09 | Emergency (ER) | payer MEDICAID ==
[~2021-08-04] VITALS: Ht 155 cm; Wt 44.0 kg
[2021-08-04 20:16] VITALS: BP 129/89
--- NOTE | 2021-08-04 20:28 | ED EENT ---
History of Present Illness General Chief Complaint: Dental Problems/Pain Stated Complaint: TOOTH ABCESS Source: patient Exam Limitations: no limitations History of Present Illness Date Seen by Provider: Aug 04, 2021 Time Seen by Provider: 20:14 Initial Comments Patient to ER by private conveyance from home with chief complaint of about 1 to 2 weeks of this episode of dental pain. She was on amoxicillin and recently went to the dentist today at [facility] and was switched over to clindamycin. She had 1 dose of it. She denies any fevers nausea vomiting chills just intense pain. She has been using ibuprofen, aspirin and Tylenol. She just started her period today. Her tooth in question is her right anterior premolar on the maxilla. Allergies and Home Medications Allergies Coded Allergies: ibuprofen (Verified Allergy, Mild, NAUSEA, 07/21/19) Patient Home Medication List Home Medication List Reviewed: Yes Acetaminophen (Acetaminophen) 500 Mg Tablet, 1,000 MG PO Q8HR Prescribed by: YAMINI SEVILLA on 07/30/19 143 Docusate Sodium (Docusate Sodium) 100 Mg Capsule, 100 MG PO BID Prescribed by: YAMINI SEVILLA on 07/30/19 1431 Naproxen (Naproxen) 250 Mg Tablet, 500 MG PO BID Prescribed by: YAMINI SEVILLA on 07/30/19 1431 Oxycodone Hcl (Oxycodone IR) 5 Mg Tab, 5 MG PO Q4HR Prescribed by: YAMINI SEVILLA on 07/30/19 1431 Vit W-Ca,Fe,FA(<1 mg) ( Vitamins) 1 Each Tablet, 1 EACH PO DAILY, (Reported) Entered as Reported by: KARON JOHN on 07/21/19 0941 Review of Systems Review of Systems Constitutional: No chills, No diaphoresis Eyes: Denies Blindness, Denies Blurred Vision Ears: Denies Dizziness, Denies Pain Nose: denies clots, denies congestion Mouth: denies clots, denies loose teeth Throat: denies pain, denies swelling Respiratory: No cough, No short of breath Cardiovascular: No edema, No Hx of Intervention Gastrointestinal: No abdominal pain, No constipation, No nausea All Other Systems Reviewed Negative Unless Noted: Yes Past Oebxofb-Pukmxp-Efvqmj Hx Patient Social History Tobacco Use?: No Smoking Status: Never a Smoker Use of E-Cig and/or Vaping dev: No Substance use?: No Alcohol Use?: No Immunizations Up To Date Tetanus Booster (TDap): Unknown Seasonal Allergies Seasonal Allergies: Yes Past Medical History Surgeries: Yes Respiratory: No Currently Using CPAP: No Currently Using BIPAP: No Cardiac: No 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) Reproductive Disorders: No Female Reproductive Disorders: Denies Sexually Transmitted Disease: No HIV/AIDS: No Gastrointestinal: No Gastroesophageal Reflux Musculoskeletal: No (WITH ) Chronic Back Pain Endocrine: No HEENT: Yes (GLASSES) Loss of Vision: Denies Hearing Impairment: Denies Cancer: No Psychosocial: Yes Anxiety, Depression Integumentary: Yes (HEAT HIVES) Eczema Blood Disorders: No Adverse Reaction/Blood Tranf: No (N/A) Family Medical History MULTIPLE SCLEROSIS 19 MOTHER Physical Exam Vital Signs Vital Signs - First Documented 08/04/21 20:16 Temp 37.0 Pulse 96 Resp 18 B/P (MAP) 129/89 (102) Pulse Ox 100 O2 Delivery Room Air Height, Weight, BMI Height: 5'2.00" Weight: 120lbs. 0.0oz. 54.250937hi; 25.00 BMI Method:Stated General Appearance: WD/WN, mild distress Eyes: bilateral eye normal inspection, bilateral eye PERRL, bilateral eye EOMI Ears: bilateral ear auricle normal, bilateral ear canal normal Nose: normal inspection; No active bleeding Mouth/Throat: other (Extensive dental caries. There is a eschar of the maxillary gingiva above the right sided premolars that is pointing.) Neck: full range of motion, supple, normal inspection Cardiovascular: normal peripheral pulses, regular rate, rhythm Respiratory: no respiratory distress, no accessory muscle use Neurologic/Psychiatric: alert, normal mood/affect, oriented x 3 Procedures/Interventions Dental Procedures: Dental I&D (Right maxillary is expressed 1 cc of purulent material. 1 cc of 1% lidocaine used) Progress/Results/Core Measures Results/Orders My Orders Orders - SALVADOR MEYER Lidocaine 2% Viscous 15 Ml (Xylocaine Vi (08/04/21 20:30) Ketorolac Injection (Toradol Injection) (08/04/21 20:30) Vital Signs/I&O 08/04/21 20:16 Temp 37.0 Pulse 96 Resp 18 B/P (MAP) 129/89 (102) Pulse Ox 100 O2 Delivery Room Air Progress Progress Note : Time: 20:26 Progress Note Suspect we can get some of this abscess to drain by using a needle decompression technique. We will give her some viscous lidocaine and offered her a shot of Toradol which she accepted. Vitals are okay. She should continue the clindamycin follow-up with her dentist and will encourage her to continue to express the abscess as much as possible over the next couple days. Departure Impression Primary Impression: Dental abscess Disposition: 01 HOME, SELF-CARE Condition: Stable Departure-Patient Inst. Decision time for Depature: 20:26 Referrals: [facility] (PCP) Primary Care Physician ELSIE BARROS APRN (Family) Primary Care Physician Patient Instructions: Tooth Abscess (DC) Add. Discharge Instructions: Continue to use the chlorhexidine mouthwash once or twice a day as tolerable for the next week or 2. Drink plenty of fluids and keep your mouth clean out and rinsed out. Tylenol 1000 mg every 8 hours as necessary for pain. Naproxen 1 tablet every 6 hours as necessary for pain. Keep your follow-up appointment with a dentist. 5 mL of viscous lidocaine applied to gauze directly over the area every 4 hours as necessary for numbing action. Continue to express anything from the abscess wound as much as possible. Continue to take the clindamycin as prescribed. Probiotics 1 tablet twice a day to prevent diarrhea can be obtained [id number] until you are done with antibiotics All discharge instructions reviewed with patient and/or family. Voiced understanding. SALVADOR MEYER Aug 04, 2021 20:28
[2021-08-04] MEDS ORDERED: KETOROLAC 60 MG/2 ML VIAL IM ONE (20:30)
[2021-08-04] MEDS ORDERED: LIDOCAINE 2% VISCOUS 15 ML UDC PO ONE (20:30)
== END 2021-08-04 20:53 | disposition home or self-care (01) ==
LOC: EDUNIT# 20:09 → ER 20:11
DX: K04.7 Periapical abscess without sinus (principal)
CPT/HCPCS: 99284